=== PATIENT | female | born 1965 | race Caucasian/White ===

== ENCOUNTER 2019-04-03 06:33 | Inpatient (IN) | payer BC ==
--- NOTE | 2019-03-13 17:03 | HP ---
HISTORY AND PHYSICAL: DATE OF ADMISSION/SURGERY: 04/03/19 DATE OF OFFICE VISIT: 03/12/19 SURGEON: Elida Hoover MD * (DICTATED BY KEITH ERIC) PROCEDURE: Right total knee arthroplasty. CHIEF COMPLAINT: Right knee pain. HISTORY OF PRESENT ILLNESS: Ms. Rutledge is a 53-year-old female with continued complaints of right knee pain. She has failed conservative treatment and elected to proceed with a right total knee arthroplasty. PAST MEDICAL HISTORY: Reactive airway disease. PAST SURGICAL HISTORY: 1. x2. 2. Right knee arthroscopy. CURRENT MEDICATIONS: 1. Albuterol sulfate inhaler. 2. Vitamin D. 3. Diclofenac sodium. 4. Mometasone. 5. Tramadol 50 mg as needed. ALLERGIES: Peanuts. FAMILY HISTORY: Cancer. SOCIAL HISTORY: A 53-year-old female who lives with her . She is a former smoker. Uses occasional alcohol. REVIEW OF SYSTEMS: A complete 14-point review of systems was reviewed with the patient. It was positive for seizures when she was 9 years old. She denies history of DVT, PE, hepatitis, HIV, or anesthesia problems. PHYSICAL EXAMINATION GENERAL: She is well developed, well nourished, in no acute distress. VITAL SIGNS: Stands 62 inches tall, weighs 229 pounds. Blood pressure is 134/ 94, heart rate is 84. HEENT: Normocephalic, atraumatic. NECK: Supple. No palpable lymph nodes. PULMONARY: The lungs are clear to auscultation bilaterally. CARDIO: Regular rate and rhythm. Strong S1, S2. ABDOMEN: Soft, nontender, nondistended. MUSCULOSKELETAL: Right Lower Extremity: The skin is intact. There are no open wounds or abrasions. There is a moderate effusion of the right knee joint. Some tenderness along the medial and lateral joint line. Range of motion is 10 to 120 degrees of flexion with patellofemoral crepitus. She is able to dorsiflex and plantarflex. She has intact sensation and 2+ dorsalis pedis pulse. NEUROLOGICAL: She is alert and oriented x3. ASSESSMENT AND PLAN: Ms. Liang Rutledge is a 53-year-old female with severe end- stage osteoarthritis of the right knee. She has failed conservative treatment and elected to proceed with a right total knee arthroplasty. The surgery is scheduled for 04/03/[address] Hoover discussed the risks and benefits of the surgery at today's visit and all of her questions were answered. She will follow up with Dr. Hoover 2 weeks after the surgery. KEITH ERIC [id number]/[facility] #: [id number] ALVAREZ
[~2019-04-03 06:33] MED LIST: Buffered Lidocaine 1% SYRIN* 1 ML/SYRINGE INTRADERM ONE; Lactated Ringers 1000 ML Bag* 1,000 ML IV SCH; Tranexamic Acid 1,000 MG in NS 0.9% 50 ML* (outpatient use) IV SCH
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
--- OUTSIDE RECORDS SUMMARY | 2019-04-03 06:35 | XMS REPORT | Continuity of Care Document ---
:1965 External Reference #:[id number] Author Name Elida Hoover M.D. (transmitted by agent of provider Marilyn Barrios) Address [address] [place] [address] Care Team Providers Name Role Phone Marcin Hogue MD - Family Medicine Care Team Information Manager Nursing Problems Active Problems Provider Date Morbid obesity Elida Hoover M.D. Onset: 01/27/2019 Localized, primary osteoarthritis Elida Hoover M.D. Onset: 01/27/2019 Social History Type Date Description Comments Sex Unknown ETOH Use Currently consumes alcohol Tobacco Use Start: Unknown End: Patient is a former smoker Unknown Smoking Status Reviewed: 03/12/19 Patient is a former smoker Exercise Type/Frequency Exercises regularly Allergies, Adverse Reactions, Alerts Active Allergies Reaction Severity Comments Date Peanut 01/24/2019 Medications Active Medications SIG Qnty Indications Ordering Provider Date Albuterol Sulfate HFA as directed Unknown 108(90Base) mcg/Act Aerosol Diclofenac Sodium 1 tab by mouth Unknown 75mg twice daily Tablets Mometasone Furoate thin layer to hand Unknown 0.1% rash three times a Ointment day Tramadol HCL 1-2 tablets by Unknown 50mg mouth every 6 hours Tablets as needed pain Adrenal GA 1 tab by mouth Unknown twice daily Glucosamine Synergy 1 tab by mouth in Unknown the morning 2 tabs at lunch and 1 tab by mouth in the evening Cataplex C 1 cap by mouth Unknown three times a day Davinci D3 (5000 Iu) 1 cap by mouth Unknown daily Hemp Oil Complex 1 cap by mouth Unknown twice daily Tumeric Forte 1 tab by mouth with Unknown breakfast and dinner, 2 tabs by mouth every evening Bactrex 1 tab by mouth Unknown daily SF Acp 1 cap by mouth Unknown twice daily Magnesium Lactate 1 cap by mouth Unknown twice daily Enzycore 1 cap by mouth Unknown twice daily DGL Chewable as directed Unknown SP Green Food 1 cap by mouth Unknown twice daily Immunizations Description No Information Available Vital Signs Date Vital Result Comment 03/12/2019 2:03pm Height 62 inches 5'2" Weight 229.25 lb Heart Rate 86 /min BP Systolic Sitting 134 mmHg BP Diastolic Sitting 94 mmHg Respiratory Rate 18 /min Pain Level 8 BMI (Body Mass Index) 41.9 kg/m2 01/27/2019 8:36am Height 62 inches 5'2" Weight 226.00 lb Heart Rate 72 /min BP Systolic 126 mmHg BP Diastolic 78 mmHg Respiratory Rate 12 /min Pain Level 4 R Knee 4 L knee 2 BMI (Body Mass Index) 41.3 kg/m2 Results Test Acquired Date Facility Test Result H/L Range Note CBC Auto 03/12/2019 [facility] White Blood 7.9 10^3/uL Normal 3.5-10.[address] [place] [address] [phone] Red Blood Count 4.17 10^6/uL Normal 3.70-4.87 Hemoglobin 13.0 g/dL Normal 12.0-16.0 Hematocrit 37 % Normal 35-47 Mean Corpuscular Volume 90 fL Normal 80-97 Mean Corpuscular Hemoglobin 31 pg Normal 27-31 Mean Corpuscular HGB Conc 35 g/dL Normal 31-36 Red Cell Distribution Width 13 % Normal 10-15 Platelet Count 255 10^3/uL Normal 150-450 Mean Platelet Volume 9.0 fL Normal 7.4-10.4 Abs Neutrophils 4.2 10^3/uL Normal 1.5-7.7 Abs Lymphocytes 2.9 10^3/uL Normal 1.0-4.8 Abs Monocytes 0.5 10^3/uL Normal 0-0.8 Abs Eosinophils 0.2 10^3/uL Normal 0-0.6 Abs Basophils 0.1 10^3/uL Normal 0-0.2 Abs Nucleated RBC 0.0 10^3/uL Granulocyte % 52.7 % Lymphocyte % 37.4 % Monocyte % 6.6 % Eosinophil % 2.5 % Basophil % 0.8 % Nucleated Red Blood Cells % 0.0 Comp Metabolic 03/12/2019 [facility] Sodium 140 mmol/L Normal 135-145 Panel [address] [place] [address] [phone] Potassium 4.1 mmol/L Normal 3.5-5.0 Chloride 105 mmol/L Normal 101-111 Co2 Carbon Dioxide 28 mmol/L Normal 22-32 Anion Gap 7 mmol/L Normal 2-11 Glucose 125 mg/dL High 70-100 Blood Urea Nitrogen 19 mg/dL Normal 6-24 Creatinine 0.76 mg/dL Normal 0.51-0.95 BUN/Creatinine Ratio 25.0 High 8-20 Calcium 9.6 mg/dL Normal 8.6-10.3 Total Protein 7.0 g/dL Normal 6.4-8.9 Albumin 4.3 g/dL Normal 3.2-5.2 Globulin 2.7 g/dL Normal 2-4 Albumin/Globulin Ratio 1.6 Normal 1-3 Total Bilirubin 0.40 mg/dL Normal 0.2-1.0 Alkaline Phosphatase 80 U/L Normal 34-104 Alt 24 U/L Normal 7-52 Ast 21 U/L Normal 13-39 Egfr Non- 79.0 >60 Egfr 95.6 >60 1 Urinalysis Profile 03/12/2019 [facility] Urine Color Straw [address] [place] [address] [phone] Urine Appearance Clear Urine Specific [place] 1.006 Low 1.010-1.030 Urine pH 7.0 Normal 5-9 Urine Urobilinogen Negative Negative Urine Ketones Negative Negative Urine Protein Negative Negative Urine Leukocytes Negative Negative Urine Blood Negative Negative Urine Nitrite Negative Negative Urine Bilirubin Negative Negative Urine Glucose Negative Negative 1 Because ethnic data is not always readily available, this report includes an eGFR for both -Americans and non- Americans. The National Kidney Disease Education Program (NKDEP) does not endorse the use of the MDRD equation for patients that are not between the ages of 18 and 70, are , have extremes of body size, muscle mass, or nutritional status, or are non- or non-. According to the National Kidney Foundation, irrespective of diagnosis, the stage of the disease is based on the level of kidney function: Stage Description GFR(mL/min/1.73 m(2)) 1 Kidney damage with normal or decreased GFR 90 2 Kidney damage with mild decrease in GFR 60-89 3 Moderate decrease in GFR 30-59 4 Severe decrease in GFR 15-29 5 Kidney failure <15 (or dialysis) Procedures Description No Information Available Medical Devices Description No Information Available Encounters Type Date Location Provider Dx Diagnosis Office Visit 01/27/2019 [facility] Elida Hoover, M25.562 Pain in left knee 8:00a at [facility] M25.561 Pain in right knee M25.462 Effusion, left knee M25.461 Effusion, right knee M17.0 Bilateral primary osteoarthritis of knee E66.01 Morbid (severe) obesity due to excess calories Z68.41 Body mass index (BMI) 40.0-44.9, adult Assessments Date Code Description Provider 03/12/2019 M25.561 Pain in right knee Elida Hoover M.D. 03/12/2019 M25.461 Effusion, right knee Elida Hoover M.D. 03/12/2019 M17.0 Bilateral primary osteoarthritis of knee Elida Hoover M.D. 01/27/2019 M25.562 Pain in left knee Elida Hoover M.D. 01/27/2019 M25.561 Pain in right knee Elida Hoover M.D. 01/27/2019 M25.462 Effusion, left knee Elida Hoover M.D. 01/27/2019 M25.461 Effusion, right knee Elida Hoover M.D. 01/27/2019 M17.0 Bilateral primary osteoarthritis of knee Elida Hoover M.D. 01/27/2019 E66.01 Morbid (severe) obesity due to excess calories Elida Hoover M.D. 01/27/2019 Z68.41 Body mass index (BMI) 40.0-44.9, adult Elida Hoover M.D. Plan of Treatment Future Appointment(s):04/14/2019 1:00 pm - Elida Hoover M.D. at [facility] at [place]04/03/2019 4:30 pm - Elida Hooevr M.D. at [facility] at [place]/12/2019 - Elida Hoover M.D.M25.561 Pain in right kneeFollow up:Follow up: 2 weeks after fiqstjrI19.461 Effusion, right kneeM17.0 Bilateral primary osteoarthritis of knee Functional Status Description No Information Available Mental Status Description No Information Available Referrals Description No Information Available
--- OUTSIDE RECORDS SUMMARY | 2019-04-03 06:35 | XMS REPORT | Summary of Care ---
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 amoxicillin-clavulan Take 1 Tab by 10 Tab 0 Active ic acid (AUGMENTIN mouth TWICE 9 875 MG) 875-125 MG DAILY. Oral TabIndications: Acute bacterial rhinosinusitis diclofenac Take 1 Tab by 60 Tab 2 Active (VOLTAREN) 75 MG mouth TWICE 9 Oral Tab DAILY. ECIndications: Primary osteoarthritis involving multiple joints benzonatate Take 1 Cap by 42 Cap 0 Active (TESSALON PERLES) mouth THREE 9 100 MG Oral TIMES DAILY CapIndications: NEEDED for Acute bacterial cough. rhinosinusitis albuterol HFA INHALE 2 PUFFS 54 g 2 Active (VENTOLIN) 108 (90 BY MOUTH EVERY 9 Base) MCG/ACT 4 HOURS Inhalation Aero NEEDED FOR SolnIndications: RAD WHEEZING (reactive airway disease), mild intermittent, with acute exacerbation tramadol (ULTRAM) 50 Take 1 Tab by 28 Tab 0 Active MG Oral mouth EVERY 9 TabIndications: SIX HOURS Chronic pain of both NEEDED (pain). lower extremities Max Daily Amount: 200 mg. mometasone (ELOCON) 1 Appl by 15 g 0 02/12/20 Discontinued 0.1 % Apply Apply 09 11 (Therapy externally externally Completed) OintmentIndications: route TWICE Dermatitis DAILY. Legs as needed predniSONE Take 2 Tabs by 10 Tab 0 02/12/20 Discontinued (DELTASONE) 20 MG mouth DAILY. 9 (Therapy Oral TabIndications: Completed) RAD (reactive airway disease), mild intermittent, with acute exacerbation documented as of this encounter (statuses as of 02/11/2019) Active Problems Problem Noted Date BMI 45.0-49.9, [...] as of this encounter (statuses as of 02/11/2019) Resolved Problems Problem Noted Date Resolved Date Knee pain, right 04/15/2013 12/25/2013 Medial meniscus tear 04/15/2013 12/25/2013 documented as of this encounter (statuses as of 02/11/2019) Immunizations Name Administration Dates Next Due Hepatitis B Vaccine 08/30/2018, 04/01/2018, 03/01/2018 Influenza (IM) Preservative Free 01/11/2018, 04/01/2017 Influenza Virus Vaccine Pres Free 6-35 01/16/2019 Months Toradol (60 mg) 07/31/2014 Tuberculin Skin Test 12/29/2009 documented as of [...] Sign Reading Time Taken Comments Blood Pressure 136/70 02/11/2019 8:59 AM EST Pulse 66 02/11/2019 8:59 AM EST Temperature 36.6 02/11/2019 8:59 AM EST C (97.8 F) Respiratory Rate - - Oxygen Saturation 97% 02/11/2019 8:59 AM EST Inhaled Oxygen Concentration - - Weight 103.4 kg (228 lb) 02/11/2019 8:59 AM EST Height - - Body Mass Index 41.7 08/05/2018 3:14 PM EDT documented in this encounter Progress Notes Beverley Graves FNP - 02/11/2019 9:00 AM EST PATIENT: Dora Rosas : 1965 DATE OF SERVICE: 02/11/2019 CHIEF COMPLAINT: Chief Complaint Patient presents with Gynecologic Exam Subjective HISTORY OF PRESENT ILLNESS: Dora Rosas is a 53-y.o. female. HPI Here for pap and annual PE - having right knee replacement in March Past Medical History: Diagnosis Date DJD (degenerative [...] MOUTH EVERY 4 HOURS NEEDED FOR WHEEZING amoxicillin-clavulanic acid (AUGMENTIN 875 MG) 875-125 MG Oral Tab Take 1 Tab by mouth TWICE DAILY. benzonatate (TESSALON PERLES) 100 MG Oral Cap Take 1 Cap by mouth THREE TIMES DAILY NEEDEDfor cough. Cholecalciferol (VITAMIN D3) 1000 units Oral Tab [...] Financial resource strain: Not on file Food insecurity: Worry: Not on file Inability: Not on file Transportation needs: Medical: Not on file Non-medical: Not on [...] activity: Yes Partners: Male Comment: Lifestyle Physical activity: Days per week: Not on file Minutes per session: Not on file Stress: Not on file Relationships Social connections: Talks on phone: Not on file Gets together: Not on file Attends pentecostal service: Not on file Active member of club or organization: Not on file Attends meetings of clubs or organizations: Not on file Relationship status: Not on file Intimate partner violence: Fear of current or ex partner: Not [...] = current weight Social History Narrative From [place], relocated to [place] in 2008. 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 HENT: Negative for congestion. Respiratory: Negative for cough and shortness of breath. Cardiovascular: Negative for chest pain and palpitations. Gastrointestinal: Negative for abdominal pain. Genitourinary: Negative for dysuria. Musculoskeletal: Positive for joint pain and myalgias. Neurological: Negative for dizziness and headaches. Psychiatric/Behavioral: Negative for depression and substance abuse. Objective PHYSICAL EXAM: VITALS: BP 136/70 | Pulse 66 | Temp 97.8 F (36.6 C) (Tympanic) | Wt 228 lb (103.4 kg) |SpO2 97% | BMI 41.70 kg/m Body mass index is 41.7 kg/ m. Physical Exam Vitals signs reviewed. Constitutional: General: She is not in acute distress. Appearance: She is obese. HENT: Head: Normocephalic and atraumatic. Right Ear: Tympanic membrane normal. Left Ear: Tympanic membrane normal. Nose: Nose normal. Mouth/Throat: Lips: [place]. Mouth: Mucous membranes are moist. Pharynx: Uvula midline. Eyes: Pupils: Pupils are equal, round, and reactive to light. Neck: Musculoskeletal: Normal range of motion. Cardiovascular: Rate and Rhythm: Normal rate and regular rhythm. Pulmonary: Effort: Pulmonary effort is normal. Breath sounds: Normal breath sounds. Chest: Chest wall: No mass, lacerations, deformity or tenderness. Breasts: Right: No inverted nipple, mass, skin change or tenderness. Left: No inverted nipple, mass, skin change or tenderness. Abdominal: General: Bowel sounds are normal. Palpations: Abdomen is soft. Tenderness: There is no tenderness. Genitourinary: General: Normal vulva. Vagina: No vaginal discharge or lesions. Cervix: Normal. Comments: Pap obtained Musculoskeletal: Right knee: She exhibits decreased range of motion. Tenderness found. Skin: General: Skin is warm and dry. Capillary Refill: Capillary refill takes less than 2 seconds. Findings: No rash. Neurological: Mental Status: She is alert and oriented to person, place, and time. Psychiatric: Mood and Affect: Mood normal. ASSESSMENT / IMPRESSION: ICD-9-CM ICD-10-CM 1. Well female exam with routine gynecological exam V72.31 Z01.419 COMPREHENSIVE METABOLIC PANEL LIPID PROFILE CBC WITH DIFFERENTIAL 2. Pap smear for cervical cancer screening V76.2 Z12.4 PAP SMEAR THINPREP AND HPV 3. Screening breast examination V76.10 Z12.39 MAMMO SCREENING TOMOSYNTHESIS BILATERAL Plan Pap done Mammogram and labs today Follow up with Dr Hogue for Pre op in March Author: TRANG Hermosillo 02/11/2019 09:43 documented in this encounter Plan of Treatment Date Type Specialty Care Team Description 02/11/2019 Ancillary Procedure Radiology Name Type Priority Associated Diagnoses Date/Time PAP SMEAR THINPREP AND Lab Routine Pap smear for cervical 02/11/2019 9:30 AM EST HPV cancer screening Name Type Priority Associated Diagnoses Order Schedule MAMMO SCREENING Imaging Routine Screening breast Expected: TOMOSYNTHESIS BILATERAL examination 02/11/2019, Expires: 05/11/2020 COMPREHENSIVE METABOLIC Lab Routine Well female exam with Expected: PANEL routine gynecological 02/11/2019 exam (Approximate), Expires: 08/10/2019 LIPID PROFILE Lab Routine Well female exam with Expected: routine gynecological 02/11/2019 exam (Approximate), Expires: 08/10/2019 CBC WITH DIFFERENTIAL Lab Routine Well female exam with Expected: routine gynecological 02/11/2019 exam (Approximate), Expires: 08/10/2019 Health Maintenance Due Date Last Done Comments PNEUMOCOCCAL 0-64 YRS (1 of 1969 1 - PPSV23) PAP SMEAR 09/24/2011 09/23/2008 COLONOSCOPY SCREENING 2013 ZOSTER IMMUNIZATION SERIES 2013 (1 of 2) DIABETES SCREENING 07/09/2018 07/09/2017, 04/27/2015, 12/22/2008 MAMMOGRAM (SCREENING) 07/19/2018 07/19/2017, 12/06/2015, 12/06/2015, Additional history exists INFLUENZA VACCINE (#1) 2018 01/11/2018, 04/01/2017 DEPRESSION SCREENING 02/01/2020 01/31/2019 LIPID DISORDER SCREENING 04/27/2020 04/27/2015, 12/22/2008 HPV IMMUNIZATION SERIES Aged Out No longer eligible based on patient's age to complete this topic MENINGOCOCCAL VACCINE IMM Aged Out No longer eligible based on patient's age to complete this topic documented as of this encounter Results Not on filedocumented in this encounter Visit Diagnoses Diagnosis Well female exam with routine gynecological exam - Primary Routine gynecological examination Pap smear for cervical cancer screening Screening for malignant neoplasm of the cervix Screening breast examination Other screening breast examination documented in this encounter Insurance Payer Benefit Plan / Subscriber ID Effective Dates Phone Address Type Group [employer] FOR[employer] xxxxxxxxxxxx 2016-Present [employer] Guarantor Name Account Type Relation to Date of Phone Billing Patient Address Dora Rosas Personal/Family 1965 [address] (Home) [place], [place] [phone] [id number] (Work) documented as of this encounter"
[2019-04-03] MEDS ORDERED: ceFAZolin 2 GM in NS PREMIX(*) 2 GM/100 ML BAG IVPB ONE (06:56)
[2019-04-03] MEDS ORDERED: Lidocaine 2% PF * 5 ML VIAL ONE ×2 (07:35→07:36)
[2019-04-03] MEDS ORDERED: Propofol* 10 MG/ML 20 ML BTL ONE (07:35)
[2019-04-03] MEDS ORDERED: ROPIVACAINE 5 MG/ML 30 ML BTL (0.5%) ONE ×2 (07:35→08:27)
[2019-04-03] MEDS ORDERED: Dexmedetomidine* 200 MCG/2 ML 2 ML VIAL ONE (07:35)
[2019-04-03] MEDS ORDERED: Midazolam* 1 MG/ML 2 ML VIAL (2 MG) ONE (07:36)
[2019-04-03] MEDS ORDERED: Midazolam* 1 MG/ML 5 ML VIAL (5 MG) ONE (08:26)
[2019-04-03] MEDS ORDERED: Bupivacaine 0.5% SDV PF* 30ML VIAL ONE (08:42)
[2019-04-03] MEDS ORDERED: Propofol* 500 MG/50 ML BTL ONE ×2 (09:38→11:01)
[2019-04-03] MEDS ORDERED: KETAMINE HCL* 50 MG/ML 10 ML VIAL ONE (09:39)
[2019-04-03] MEDS ORDERED: Dexamethasone IV* 4 MG/ML 1 ML (4 MG) ONE (10:33)
[2019-04-03] MEDS ORDERED: EPHEDrine (Pressors)* 50 MG/ML VIAL ONE (10:48)
[2019-04-03] MEDS ORDERED: Ketorolac INJ* 30 MG/ML 1 ML VIAL IV PRN (10:58)
[2019-04-03] MEDS ORDERED: Acetaminophen IV 1GM/100ML * 1,000 MG/100 ML VIAL IVPB ONE (10:58)
[2019-04-03] MEDS ORDERED: Naloxone* 0.4 MG/ML 1 ML VIAL IV PRN (10:58)
[2019-04-03] MEDS ORDERED: oxyCODONE TAB* 5 MG TAB PO PRN (10:58)
[2019-04-03] MEDS ORDERED: Metoclopramide IV* 5 MG/ML 2 ML VIAL IV PRN (10:58)
[2019-04-03] MEDS ORDERED: HYDROmorphone INJ1* 1 MG/ML SYRINGE IV PRN (10:58)
[2019-04-03] MEDS ORDERED: Ondansetron INJ* 2 MG/ML VIAL ONE (12:04)
[2019-04-03] MEDS ORDERED: Acetaminophen IV 1GM/100ML * 100 ML ONE (12:11)
[2019-04-03] MEDS ORDERED: diPHENhydraMINE LIQ* 12.5 MG/5 ML UDC PO PRN (12:36)
[2019-04-03] MEDS ORDERED: Magnesium Hydroxide LIQ* 30 ML UDC PO PRN (12:36)
[2019-04-03] MEDS ORDERED: diPHENhydraMINE IV* 50 MG/ML 1 ml VIAL (BENADRYL) IV PRN (12:36)
[2019-04-03] MEDS ORDERED: diPHENhydraMINE PO* 25 MG PO PRN (12:36)
[2019-04-03] MEDS ORDERED: Polyethylene Glycol 3350* 17 GM PACKET PO PRN (12:36)
[2019-04-03] MEDS ORDERED: Ondansetron TAB* 4 MG PO PRN (12:36)
[2019-04-03] MEDS ORDERED: Ondansetron ODT TAB* 4 MG PO PRN (12:36)
[2019-04-03] MEDS ORDERED: Ondansetron INJ* 2 MG/ML VIAL IV PRN (12:36)
[2019-04-03] MEDS ORDERED: Albuterol HFA INHALER* 8 gm MDI INH PRN (12:39)
[2019-04-03] MEDS: Lactated Ringers 1000 ML Bag* 1,000 ML IV SCH ×2 (13:59→23:26)
[2019-04-03] MEDS: Morphine INJ* 2 MG/ML 1 ML SYRINGE (TWO MG - NEW SYRINGE VERSION) IV PRN ×2 (14:00→21:43)
[2019-04-03] MEDS: Acetaminophen TAB* 325 MG PO SCH ×2 (15:13→21:51)
[2019-04-03] MEDS: oxyCODONE/Acetamin 5/325 MG* TAB PO PRN ×2 (15:16→20:16)
[2019-04-03] MEDS: Cyclobenzaprine TAB* 10 MG PO PRN ×2 (15:59→21:58)
[2019-04-03] MEDS ORDERED: Morphine INJ* 2 MG/ML 1 ML SYRINGE (TWO MG - NEW SYRINGE VERSION) IV ONE (16:17)
[2019-04-03] MEDS: oxyCODONE TAB* 5 MG TAB PO PRN ×2 (17:16→23:22)
[2019-04-03] MEDS: ceFAZolin 1 GM ADVAN(*) 1 GM in NS 0.9% 50 ML* 50 ML IVPB SCH (18:13)
--- NOTE | 2019-04-03 19:20 | OP ---
Operative Report - Blank - Operative Report Date of Operation: 04/03/19 Note: PRISCA KAISER 1965 Date of Surgery: 04/03/19 Elida Hoover MD Sensor Operator: Giovani PARKER did help throughout the procedure with preparation of the knee, wound retraction, manipulation of the knee, and wound closure. Anesthesiologist: Talia Faith MD Anesthesia Type: Spinal Preoperative Diagnosis: Right severe degenerative osteoarthritis of the knee Postoperative Diagnosis: As above Procedure Performed: Right Total Knee Arthroplasty Tourniquet time: 62 minutes Complications: None Specimen: Bone and cartilage from the right knee joint sent to pathology. Hardware Used: Cemented Hedrick and Nephew total knee hardware was used - For the femur a size 5 right narrow oxinium legion posterior stabilized femoral component, for the tibia a size 3 right meredith II tibial baseplate, for the insert a size 9mm 3-4 posterior stabilized articular polyethylene insert, and for the patella a size 32 3-peg all poly patella. Brief History/Indication: PRISCA KAISER was known in clinic and had a history of severe right knee pain and swelling. She failed conservative treatment with anti-inflammatories, pain pills, intra-articular injections and physical therapy. She elected to undergo right total knee arthroplasty due to continued pain and decreased quality of life. Radiographs showed severe end stage osteoarthritis of the knee with bone on bone contact. Informed consent was obtained from the patient. She understood the risks of surgery included but were not limited to: bleeding, infection, damage to nearby structures, intraoperative fracture, nerve palsy, failure of the hardware, early loosening, knee stiffness or loss of motion, anesthesia complications, stroke, heart attack , blood clot and . Additional pin site risks were discussed, as the patient wished to have the [facility] robotoc surgical system used. She wished to proceed. Intra-Operative Findings: Intraoperatively the patient was noted to have severe loss of cartilage in all 3 compartments of the knee. She had extensive osteophyte formation. [facility] robotic system was used during the surgery. Description of the Procedure: PRISCA KAISER was identified in the preanesthesia unit. Her right knee was marked as the correct operative side. Informed consent was signed and placed in the chart. The patient was taken to the operating room and placed under anesthesia without complication. A johnson catheter was placed. A tourniquet was placed on the right thigh. The right lower extremity was prepped and draped in the usual sterile fashion. Preoperative time-out was made to correctly identify the patient, side and site. Appropriate intraoperative antibiotics were given within one hour of incision. Tourniquet was inflated. A midline incision was made and carried sharply down to the extensor mechanism. A new 10 blade was used to make a standard medial parapatellar arthrotomy. The patella was subluxed laterally. Electrocautery was used to dissect soft tissue off the superomedial tibia to the midsagittal plane. The knee was flexed up. The anterior horn of the lateral meniscus and the ACL/PCL were sharply incised. The two checkpoint screw were placed without complication. The two tibial pins and the array was placed. The first femoral pin was placed. It was noted that the patient's morbidly obese body habitus was affecting the pin. The pin was pushed at an angle and it was decided that this could pose a fracture risk throughout the case. The pins and screws were removed at this point. A drill was used to enter the distal femur. The intramedullary distal femoral cutting guide was pinned on the distal femur. The oscillating saw was used to make the distal femoral cut. The external rotation guide was pinned on the distal femur and the distal femur was sized to a size 5. The size 5 multi-cutting jig was pinned on the distal femur. The oscillating saw was used to make the appropriate 4 chamfer cuts. Next the PCL was completely released. The extramedullary tibial cutting guide was pinned on the proximal tibia and the oscillating saw was used to make the proximal tibial cut perpendicular to the mechanical axis of the tibia. The bone was carefully removed. The knee was brought out into full extension. The spacer block was placed and had excellent fit with the knee in full extension. The medial and lateral ligaments were well balanced. The flexion and extension gaps were well balanced. The knee was flexed up. Lamina sales branch manager was placed both medially and laterally. Any remaining meniscus was removed with electrocautery. Curved osteotome was used to remove any posterior osteophytes. The tibial tray and drop yefri were placed and confirmed a satisfactory tibial cut. The size 5 right narrow femoral trial was impacted onto the distal femur. This trial had excellent fit and stability. The box for the posterior stabilized implant was prepared using a box cut osteotome and a reamer. Next a tibial tray trial and 9 mm insert trial was placed. The knee was taken through a range of motion and had full extension to 130 degrees of flexion. Patellofemoral tracking was satisfactory. The patella was inverted and sized to a size 32. Three peg holes were drilled through the size 32 drill guide. The trial patella was placed and the knee was taken through a range of motion. There was satisfactory patellofemoral tracking. All trials were removed. The tibia was subluxed anteriorly and sized to a size 3. The proximal tibial was prepared with a size 3 keel punch. All bony cut surfaces were irrigated with sterile saline and dried. Final implants were cemented into place starting with the tibia, followed by the femur, and last the patella. A 9 mm insert trial was placed and the knee was brought into full extension. Tourniquet was turned down and the knee was copiously irrigated with sterile saline. Electrocautery was used to obtain meticulous hemostasis. Once the cement had fully cured, the insert trial was removed. Any excess cement was removed from around the hardware and capsule. Final insert chosen was a 9 mm posterior stabilized Meredith II articular insert size 3-4. Stability of the insert was checked and noted to be stable. The extensor mechanism was closed using number 1 vicryls. The rest of the incision was closed in a layered fashion using 0 and 2-0 vicryls. The skin was closed using 3-0 nylon suture. Sterile xeroform, 4x4s and webril were used to cover the incision. Ramesh wrap and cold pack were used to cover the dressings. The patients anesthesia was reversed without difficulty. She was taken to the PACU in stable condition. Intended weight-bearing will be as tolerated.
[2019-04-03] MEDS: traMADol TAB* 50 MG PO PRN (21:37)
[2019-04-03] MEDS: Magnesium Hydroxide LIQ* 30 ML UDC PO SCH (21:37)
[2019-04-03] MEDS: Docusate CAP* 100 MG PO SCH (21:38)
[2019-04-04] MEDS: ceFAZolin 1 GM ADVAN(*) 1 GM in NS 0.9% 50 ML* 50 ML IVPB SCH ×2 (02:10→10:12)
[2019-04-04] MEDS: oxyCODONE/Acetamin 5/325 MG* TAB PO PRN ×2 (02:10→10:13)
[2019-04-04 06:13] LABS: Hematocrit 31 % (35-47); Hemoglobin 10.8 g/dL (12.0-16.0); Mean Platelet Volume 8.2 fL (7.4-10.4); Platelet Count 249 10^3/uL (150-450)
[2019-04-04] MEDS: oxyCODONE TAB* 5 MG TAB PO PRN ×3 (06:18→17:51)
[2019-04-04 06:29] LABS: Calcium 8.6 mg/dL (8.6-10.3); EGFR African American 120.5 (>60); EGFR Non-African American 99.6 (>60); Potassium 4.3 mmol/L (3.5-5.0)
[2019-04-04] MEDS: Acetaminophen TAB* 325 MG PO SCH ×3 (07:08→22:07)
[2019-04-04] MEDS: Docusate CAP* 100 MG PO SCH ×2 (08:03→20:51)
[2019-04-04] MEDS: traMADol TAB* 50 MG PO PRN ×2 (08:03→20:52)
[2019-04-04] MEDS: Cyclobenzaprine TAB* 10 MG PO PRN (08:03)
[2019-04-04] MEDS: Vitamin THERAPEUTIC TAB PO SCH (08:04)
[2019-04-04] MEDS: Magnesium Hydroxide LIQ* 30 ML UDC PO SCH ×2 (08:04→20:51)
[2019-04-04] MEDS: Apixaban* 2.5 MG TAB PO SCH ×2 (08:04→20:51)
--- NOTE | 2019-04-04 11:25 | PN ---
Progress Note - Progress Note Date of Service: 04/04/19 SOAP: Subjective: [Pt was seen this morning sitting in the chair. She states that she is doing well but feels tired and painful after PT. She denies any chest pain, SOB, nausea or vomiting. She would like to stay another night to get under better control for pain. ] Objective: [General: Pt is alert and oriented x 3. MSK, RLE: Dressing is c/d/i. +df/pf. Calf soft and non tender. NVI and a 2+ DP pulse. Vital Signs Temp 98.2 F 04/04/19 08:44 Pulse 66 04/04/19 08:44 Resp 16 04/04/19 10:13 BP 120/51 04/04/19 08:44 Pulse Ox 93 04/04/19 08:44 Intake & Output 04/03/19 04/04/19 04/04/19 18:59 06:59 18:59 Intake Total 1500 2619 1095 Output Total 1750 Balance 1856 313 2030 Weight 232 lb Intake: IV Fluids 1500 919 990 ABX - CEFAZOLIN 50 LR 1400 869 990 NS 100ML, Cefazolin 2G 100 IVPB 105 ABX - CEFAZOLIN 105 Oral 1700 0 Output: Steven 1750 ] Assessment: [POD 1 Right total knee arthroplasty. ] Plan: [PT/OT Eliquis x 30 days Percocet for pain Possible DC home tomorrow. ]
[2019-04-04] MEDS: Lactated Ringers 1000 ML Bag* 1,000 ML IV SCH (15:12)
[2019-04-04] MEDS ORDERED: NS 0.9% 1000 ML** 1,000 ML IV ONE (18:30)
[2019-04-04] MEDS: Morphine INJ* 2 MG/ML 1 ML SYRINGE (TWO MG - NEW SYRINGE VERSION) IV PRN (19:20)
[2019-04-05] MEDS: oxyCODONE TAB* 5 MG TAB PO PRN ×2 (00:54→08:21)
[2019-04-05] MEDS: Lactated Ringers 1000 ML Bag* 1,000 ML IV SCH (02:26)
[2019-04-05 05:11] LABS: Hematocrit 28 % (35-47); Hemoglobin 9.5 g/dL (12.0-16.0); Mean Platelet Volume 8.3 fL (7.4-10.4); Platelet Count 207 10^3/uL (150-450)
[2019-04-05] MEDS: Acetaminophen TAB* 325 MG PO SCH (06:28)
[2019-04-05] MEDS: Apixaban* 2.5 MG TAB PO SCH (08:21)
[2019-04-05] MEDS: Vitamin THERAPEUTIC TAB PO SCH (08:21)
[2019-04-05] MEDS: Magnesium Hydroxide LIQ* 30 ML UDC PO SCH (08:23)
[2019-04-05] MEDS: Docusate CAP* 100 MG PO SCH (08:23)
--- NOTE | 2019-04-05 09:42 | PN ---
Progress Note - Progress Note Date of Service: 04/05/19 SOAP: Subjective: [Pt reports R knee pain 10/02 - but just returned from PT. Pain managed with regular use of po meds. Feels ready to go home. Had a headache this morning but resolved after taking tylenol. Denies CP, SOB, dizziness. Does not have much of an appetite. Has had BM.] Objective: [A and O x 3, NAD. Seated in chair. R knee dressing changed. Surgical wounds benign - no drainage or erythema. Distal gross motor and NV function intact. Calves soft, NT Vital Signs: Temp Pulse Resp BP Pulse Ox 98.7 F 72 20 121/58 92 04/05/19 07:46 04/05/19 07:46 04/05/19 08:21 04/05/19 07:46 04/05/19 07:46 Laboratory Results - last 24 hr 04/05/19 04:33 Hgb 9.5 L Hct 28 L Plt Count 207 MPV 8.3 ] Assessment: [s/p R TKA POD #2 doing well] Plan: [WBAT R LE Pain management D/C home today - pt will be going to outpt PT at [facility] F/U with Dr. Hoover 2 weeks post op]
[2019-04-05 11:08] VITALS: BP 104/51
[2019-04-05] MEDS: oxyCODONE/Acetamin 5/325 MG* TAB PO PRN (11:12)
[2019-04-05] MEDS: traMADol TAB* 50 MG PO PRN (13:46)
--- NOTE | 2019-04-07 12:25 | DS ---
AMENDED REPORT NOW INCLUDES DESIGNATED COSIGNER DISCHARGE SUMMARY: DATE OF ADMISSION: 04/03/19 DATE OF DISCHARGE: 04/05/19 PROVIDER: Elida Hoover MD.* (DICTATED BY KEITH HALL) ADMITTING DIAGNOSES: Right knee osteoarthritis, reactive airway disease. DISCHARGE DIAGNOSES: Status post right total knee arthroplasty, reactive airway disease. OPERATIVE PROCEDURE: Right total knee arthroplasty. CONSULTANTS: Physical Therapy, Occupational Therapy. BRIEF HISTORY: Ms. Liang Rutledge is a 53-year-old female with severe degenerative osteoarthritis of her right knee. She failed conservative treatment measures and elected to undergo a right total knee arthroplasty on 12/[address] Hoover. HOSPITAL COURSE: Ms. Liang Rutledge was admitted to [facility] on 04/03. She underwent an uncomplicated right total knee arthroplasty. Postoperatively, she recovered on the short-stay unit. Her Steven catheter was removed on postoperative day 1 and she was able to urinate on her own. Postoperative day 2, she was able to have a bowel movement. She advanced to regular diet without difficulty and pain was well controlled with Percocet and oxycodone. She was restarted on her home medications. Her vital signs and her labs remained stable. She was able to bare weight as tolerated on her right lower extremity and progressed appropriately with physical therapy and occupational therapy. DVT prophylaxis with Eliquis 2.5 mg twice a day. By postoperative day #2, she was orthopedically and medically stable for discharge home with services. PHYSICAL EXAM: General: On examination, the patient is noted to be calm and cooperative, no acute distress. She is alert and oriented x3. Vital Signs: On day of discharge, temperature 98.7 degrees Fahrenheit, pulse rate 72, respiratory rate 17, O2 sat 92% on room air, blood pressure 121/58. Extremities : Examination of her right lower extremity demonstrates a dressing overlying the right knee, which is clean, dry, and intact. Surgical incision is benign. Her calf is soft and nontender. Distally gross motor and neurovascular function are intact. LABORATORY DATA: On day of discharge, hemoglobin 9.5, hematocrit 28. RADIOGRAPHS: Postoperative radiographs of the right knee demonstrate a right total knee arthroplasty with satisfactory prosthesis placement. No acute bony abnormalities. DISCHARGE MEDICATIONS: 1. Albuterol sulfate inhaler. 2. Vitamin D. 3. Mometasone. 4. Percocet 5/325 two tabs q.4 to 6 hours p.r.n. severe pain. 5. Eliquis 2.5 mg b.i.d. for 30 days. 6. Colace 100 mg up to t.i.d. p.r.n. constipation from a narcotic use. CONDITION ON DISCHARGE: Stable. DISCHARGE INSTRUCTIONS: Ms. Liang Rutledge is a 54-year-old female, on postoperative day #2, status post a right total knee arthroplasty which is uncomplicated. She is orthopedically and medically stable to be discharged home with services. She has stable vital signs and labs. She will be weightbearing as tolerated on her right lower extremity. She will use Percocet for pain control, Eliquis for DVT prophylaxis, and Colace as needed for constipation. She will follow up with Dr. Hoover in the office approximately 2 weeks postop for incision check and suture removal. She is planning to go to outpatient physical therapy done at [facility]. She was instructed to call Dr. Hoover or go immediately to the ER should she develop any new fever, chills, incision pain, redness, or drainage. She was instructed to go immediately to the ER should she develop chest pain or shortness of breath. KEITH HALL [id number]/CPS #: [id number] MTDD
== END 2019-04-05 13:45 | disposition home or self-care (01) | DRG 302 ==
LOC: AA 06:33 → SSU 12:36
PROVIDERS: ADMIT Orthopaedic Surgery Adult Reconstructive Orthopaedic Surgery; ATTEND Orthopaedic Surgery Adult Reconstructive Orthopaedic Surgery
PROC: 0SRC069 Replacement of Right Knee Joint with Oxidized Zirconium on Polyethylene Synthetic Substitute, Cemented, Open Approach (ICD-10-PCS; principal; 2019-04-03 09:00)
DX: M17.11 Unilateral primary osteoarthritis, right knee (principal); Z68.41 Body mass index [BMI] 40.0-44.9, adult; J45.909 Unspecified asthma, uncomplicated; G43.909 Migraine, unspecified, not intractable, without status migrainosus; G89.29 Other chronic pain; M25.761 Osteophyte, right knee; E66.9 Obesity, unspecified; Z87.891 Personal history of nicotine dependence; Z91.011 Allergy to milk products; Z91.010 Allergy to peanuts; Z88.8 Allergy status to other drugs, medicaments and biological substances; Z79.899 Other long term (current) drug therapy
CPT/HCPCS: 36415; 76000; 80048; 85014; 85018; 85049; 86850; 86900; 86901; 88305; 88311; A9270-GY; C1776; J0690; J1100; J2250; J2270; J2405; J2704; J2795; J3490

== ENCOUNTER 2020-11-16 08:09 | Inpatient (IN) ==
[~2020-11-16 08:09] MED LIST changes: +Buffered Lidocaine 1% SYRIN 1 ml INTRADERM ONE; -Buffered Lidocaine 1% SYRIN* 1 ML/SYRINGE INTRADERM ONE; +Famotidine IV 10 MG/ML 2 ml VIAL (20 mg) IV ONE; -Lactated Ringers 1000 ML Bag* 1,000 ML IV SCH; +Lactated Ringers 1000 ml BAG 1,000 ML IV SCH; -Tranexamic Acid 1,000 MG in NS 0.9% 50 ML* (outpatient use) IV SCH
[2020-11-16] MEDS ORDERED: ceFAZolin 2 GM in NS PREMIX 2 GM/100 ML BAG IVPB ONE (08:30)
[2020-11-16] MEDS ORDERED: Famotidine IV 10 MG/ML 2 ml VIAL (20 mg) ONE (08:30)
[2020-11-16] MEDS ORDERED: Lidocaine 2% PF 5 ML VIAL ONE ×2 (08:54→10:21)
[2020-11-16] MEDS ORDERED: Propofol 10 MG/ML 20 ML BTL ONE ×2 (08:54→13:20)
[2020-11-16] MEDS ORDERED: Ketamine HCL 50 mg/ml 10 ml VIAL (500 MG) ONE (08:55)
[2020-11-16] MEDS ORDERED: fentaNYL 100 mcg/2 ml 50 MCG/ML VIAL ONE (10:21)
[2020-11-16] MEDS ORDERED: ROPIVACAINE 5 MG/ML 30 ML BTL (0.5%) ONE ×2 (10:21→10:39)
[2020-11-16] MEDS ORDERED: Midazolam 5 mg/5 ml VIAL 1 mg/ml 5 ml VIAL (5 mg) ONE (10:21)
[2020-11-16] MEDS ORDERED: Midazolam 2 mg/2 ml VIAL 1 mg/ml 2 ml VIAL (2 mg) ONE (11:28)
[2020-11-16] MEDS ORDERED: fentaNYL 100 mcg/2 ml 50 MCG/ML VIAL IV PRN (11:43)
[2020-11-16] MEDS ORDERED: Ondansetron 4 mg VIAL 2 MG/ML 2 ml VIAL IV PRN (11:43)
[2020-11-16] MEDS ORDERED: HYDROmorphone 1 MG/1 ML SYRINGE IV PRN (11:43)
[2020-11-16] MEDS ORDERED: Naloxone 0.4 mg VIAL 0.4 mg/ml 1 ml VIAL IV PRN (11:43)
[2020-11-16] MEDS ORDERED: EPHEDrine (Pressors) 50 MG/ML VIAL ONE (11:44)
[2020-11-16] MEDS ORDERED: diPHENhydraMINE IV 50 MG/ML 1 ml VIAL (BENADRYL) IV PRN (12:46)
[2020-11-16] MEDS ORDERED: Morphine 2 MG/ML SYRINGE IV PRN (12:46)
[2020-11-16] MEDS ORDERED: Lactulose 30 ml UDC PO PRN (12:46)
[2020-11-16] MEDS ORDERED: diPHENhydraMINE 25 mg TAB PO PRN (12:46)
[2020-11-16] MEDS ORDERED: Ondansetron ODT 4 mg TAB 4 MG TAB PO PRN (12:46)
[2020-11-16] MEDS ORDERED: Magnesium Hydroxide LIQ 30 ML UDC PO PRN (12:46)
[2020-11-16] MEDS ORDERED: Albuterol HFA INHALER 8 gm MDI INH PRN (12:55)
[2020-11-16] MEDS: Ondansetron 4 mg VIAL 2 MG/ML 2 ml VIAL IV PRN (20:04)
[2020-11-16] MEDS: ceFAZolin 1 GM ADVAN 1 GM in NS 0.9% 50 ML 50 ML IVPB SCH (20:04)
[2020-11-16] MEDS: Magnesium Hydroxide LIQ 30 ML UDC PO SCH (22:41)
[2020-11-17] MEDS: ceFAZolin 1 GM ADVAN 1 GM in NS 0.9% 50 ML 50 ML IVPB SCH ×2 (03:08→11:57)
[2020-11-17] MEDS: Lactated Ringers 1000 ml BAG 1,000 ML IV SCH ×2 (03:09→14:01)
[2020-11-17 05:52] LABS: Hematocrit 34 % (35-47); Hemoglobin 11.5 g/dL (12.0-16.0); Platelet Count 203 10^3/uL (150-450)
[2020-11-17 06:13] LABS: Calcium 8.5 mg/dL (8.6-10.3); EGFR African American 106.1 (>60); EGFR Non-African American 87.7 (>60); Potassium 4.3 mmol/L (3.5-5.0)
[2020-11-17] MEDS: Magnesium Hydroxide LIQ 30 ML UDC PO SCH ×2 (08:00→22:01)
[2020-11-17] MEDS: Vitamin THERAPEUTIC TAB PO SCH (08:00)
[2020-11-17] MEDS ORDERED: Naloxone 0.4 mg VIAL 0.4 mg/ml 1 ml VIAL IV PUSH ONE ×2 (14:29→16:22)
[2020-11-17] MEDS ORDERED: LACTATED RINGERS 500 ML BAG IV ONE (14:30)
[2020-11-17] MEDS ORDERED: Naloxone 0.4 mg VIAL 0.4 mg/ml 1 ml VIAL ONE (14:34)
[2020-11-17 14:57] LABS: PCO2 Arterial 52 mmHg (35-45); PO2 Arterial 178 mmHg (80-100)
[2020-11-17] MEDS: Ondansetron 4 mg VIAL 2 MG/ML 2 ml VIAL IV PRN (17:11)
[2020-11-17 18:03] LABS: Rapid COVID-19 Molecular Undetected (Undetected)
[2020-11-18] MEDS: Lactated Ringers 1000 ml BAG 1,000 ML IV SCH (01:00)
[2020-11-18 06:55] LABS: Hematocrit 31 % (35-47); Hemoglobin 10.9 g/dL (12.0-16.0); Platelet Count 176 10^3/uL (150-450)
[2020-11-18] MEDS: Magnesium Hydroxide LIQ 30 ML UDC PO SCH ×3 (08:39→19:44)
[2020-11-18 09:10] LABS: Calcium 8.6 mg/dL (8.6-10.3); EGFR African American 117.9 (>60); EGFR Non-African American 97.4 (>60); Potassium 4.4 mmol/L (3.5-5.0)
[2020-11-18] MEDS: Vitamin THERAPEUTIC TAB PO SCH (09:27)
[2020-11-18] MEDS ORDERED: Furosemide 20 mg/2 ml IV VIAL IV ONE (10:05)
[2020-11-19 05:57] LABS: Hematocrit 29 % (35-47); Hemoglobin 9.9 g/dL (12.0-16.0); Platelet Count 174 10^3/uL (150-450)
[2020-11-19] MEDS: Vitamin THERAPEUTIC TAB PO SCH (08:16)
[2020-11-19] MEDS: Magnesium Hydroxide LIQ 30 ML UDC PO SCH (08:30)
[2020-11-19 11:19] VITALS: BP 121/66
== END 2020-11-19 12:45 | disposition home or self-care (01) | DRG 302 ==
LOC: AA 08:09 → SSU 16:21
PROVIDERS: ADMIT Orthopaedic Surgery Adult Reconstructive Orthopaedic Surgery; ATTEND Orthopaedic Surgery Adult Reconstructive Orthopaedic Surgery